=== PATIENT | female | born 1945 | race Caucasian/White ===

== ENCOUNTER 2016-10-16 21:41 | Emergency (ER) | payer MEDICARE, OTHER ==
[2016-10-16 22:19] VITALS: BP 179/76
--- NOTE | 2016-10-16 23:11 | EDM.PDOC ---
[id number] ILLNESS Time Seen by Provider: 10/16/16 22:50 Source of Information: Reports: Patient, Family History Limitations: Reports: No limitations - History of Present Illness INITIAL COMMENTS - FREE TEXT/NARRATIVE: 71-year-old female who over the last 12 hours states she developed a cough and a small amount of nasal congestion, spiked a fever tonight developing rigors at home and became very sweaty and diaphoretic. She felt her pulse in her head so was worried she was having a stroke so came in to be seen. She is perfectly stable. No shortness of breath, no nausea or vomiting. She took Tylenol earlier this evening and some Mucinex. Onset: today Severity: mild Associated Symptoms: Reports: cough, diaphoresis, fever/chills. Denies: nausea/ vomiting, shortness of breath - Related Data Allergies Allergy/AdvReac Type Severity Reaction Status Date / Time erythromycin base AdvReac Nausea Verified 06/01/14 06:49 [Erythromycin Base] Home Meds: Home Meds Rosuvastatin [Crestor] 1 tab PO BEDTIME 06/01/14 [History] Triamterene/Hydrochlorothiazid [Triamterene-HCTZ 37.5-25 MG] 0.5 tab PO DAILY [History] Past Medical History Cardiovascular History: Reports: Hypertension DIRECTOR CAMP History: Reports: Musculoskeletal History: Reports: Fracture - Past Surgical History HEENT Surgical History: Reports: Eye surgery Female Surgical History: Reports: Hysterectomy Social & Family History - Tobacco Use Smoking Status *Q: Never Smoker Second Hand Smoke Exposure: No - Caffeine Use Caffeine Use: Reports: Coffee - Alcohol Use Days Per Week of Alcohol Use: 4 Number of Drinks Per Day: 1 Total Drinks Per Week: 4 - Recreational Drug Use Recreational Drug Use: No ED ROS GENERAL - Review of Systems Review Of Systems: See Below Constitutional: Reports: fever, chills. Denies: malaise HEENT: Reports: Rhinitis Respiratory: Reports: Cough. Denies: Shortness of Breath Cardiovascular: Denies: Chest pain GI/Abdominal: Denies: Abdominal pain : Reports: no symptoms Skin: Reports: no symptoms Psychiatric: Reports: No symptoms ED EXAM, GENERAL - Physical Exam Exam: See Below Exam Limited By: No limitations General Appearance: alert, no apparent distress Eye Exam: bilateral eye: normal inspection Ears: normal TMs Nose: normal inspection Throat/Mouth: Normal inspection Respiratory/Chest: no respiratory distress, lungs clear Cardiovascular: regular rate, rhythm Neurological: alert, oriented Psychiatric: normal affect, normal mood Skin Exam: Warm, Dry Course - Vital Signs Last Recorded V/S: Last Vital Signs Temp 99.1 F 10/16/16 22:34 Pulse 86 10/16/16 22:34 Resp 16 10/16/16 22:34 BP 179/76 H 10/16/16 22:34 Pulse Ox 95 10/16/16 22:34 - Orders/Labs/Meds Orders: Active Orders 24 hr Category Date Time Status CULTURE STREP A CONFIRMATION [RM] Routine Lab 10/16/16 23:08 Results STREP SCRN A RAPID W CULT CONF [RM] Routine Lab 10/16/16 23:08 Results - Re-Assessments/Exams Free Text/Narrative Re-Assessment/Exam: 10/16/16 23:11 Influenza antigens and a rapid strep were obtained. 10/17/16 00:24 Patient was positive for influenza B. She'll be placed on Tamiflu 75 mg twice daily for 5 days. She can return anytime if worsening or concerns. Departure - Departure Time of Disposition: 00:31 Disposition: Home, Self-Care 01 Condition: good Clinical Impression: Influenza B Instructions: Influenza, Adult, [id number] Referrals: Kaleigh Infante PA [Primary Care Provider] - Forms: ED Department Discharge Care Plan Goals: Take Tamiflu as prescribed, ibuprofen or Tylenol for fever or pain and return for recheck if worsening such as difficulty breathing. Get rest and fluids. - My Orders Last 24 Hours: My Active Orders 10/16/16 23:08 CULTURE STREP A CONFIRMATION [RM] Routine STREP SCRN A RAPID W CULT CONF [RM] Routine - Assessment/Plan Last 24 Hours: My Active Orders 10/16/16 23:08 CULTURE STREP A CONFIRMATION [RM] Routine STREP SCRN A RAPID W CULT CONF [RM] Routine
== END 2016-10-17 00:37 | disposition home or self-care (01) ==
LOC: JP.ED 21:41
DX: J10.1 Influenza due to other identified influenza virus with other respiratory manifestations (principal); Z88.1 Allergy status to other antibiotic agents; Z79.899 Other long term (current) drug therapy; Z90.710 Acquired absence of both cervix and uterus
CPT/HCPCS: 87081; 87430; 87804; 99283; 99284

== ENCOUNTER 2017-06-24 07:48 | Day surgery (SDC) | payer MEDICARE, OTHER ==
[2017-06-24] MEDS ORDERED: Sodium Chloride 0.9% 1,000 ML IV SCH (08:30)
[2017-06-24] MEDS ORDERED: Propofol 200 MG/20 ML SDV ONE (08:34)
[2017-06-24] MEDS ORDERED: fentaNYL 100 MCG/2 ML SDV ONE (08:34)
[2017-06-24 10:44] VITALS: BP 173/79
--- NOTE | 2017-06-25 09:44 | OR ---
DATE OF PROCEDURE: 06/24/2017 PROCEDURE: Colonoscopy. FINDINGS: Sigmoid colon polyp, approximately 5 mm, completely removed using cold biopsy forceps. COMPLICATIONS: None. 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 PREOPERATIVE DIAGNOSIS: Screening colonoscopy. POSTOPERATIVE DIAGNOSIS: Screening colonoscopy. RISKS: Risks, benefits, alternatives, and limitations, including but not limited to bleeding and infection, were explained to the patient, who wished to proceed. PROCEDURE IN DETAIL: The patient was placed in left lateral decubitus position. Digital rectal exam was performed without abnormality. Scope was introduced and advanced atraumatically to the ileocecal valve. The scope was brought back through the ascending, transverse, descending colon, and retroflexed. There was no evidence of old or new blood. No diverticulosis. No other abnormalities. The patient tolerated the procedure well. Flakito Barcenas MD /[id number]
== END 2017-06-24 11:22 | disposition home or self-care (01) ==
LOC: JP.SDS 07:48
PROVIDERS: ATTEND Surgery
DX: Z12.11 Encounter for screening for malignant neoplasm of colon (principal); D12.5 Benign neoplasm of sigmoid colon; I10 Essential (primary) hypertension; Z88.1 Allergy status to other antibiotic agents
CPT/HCPCS: 45380; 88305; J2704; J3010; J7040

== ENCOUNTER 2020-09-12 06:19 | Day surgery (SDC) | payer MEDICARE, OTHER ==
[2020-09-12] MEDS ORDERED: Sodium Chloride 0.9% 1,000 ML IV SCH (07:00)
[2020-09-12] MEDS ORDERED: fentaNYL 100 MCG/2 ML SDV ONE (07:20)
[2020-09-12] MEDS ORDERED: Propofol 200 MG/20 ML SDV ONE (07:20)
[2020-09-12] MEDS ORDERED: Midazolam 1 MG/ML 2 ML SDV ONE (07:21)
[2020-09-12 08:57] VITALS: BP 139/53; PULSE 56
--- NOTE | 2020-09-12 11:15 | OR ---
DATE OF PROCEDURE: SURGEON: Flakito Barcenas MD PROCEDURE: Colonoscopy. FINDINGS: 1. Ascending colon polyp, approximately 5 mm, completely removed using cold biopsy forceps. 2. Ascending colon polyp #2, approximately 5 mm, completely removed using cold biopsy forceps. COMPLICATIONS: None. SHAKE TABLE OPERATOR: None. ANESTHESIA: MAC. PREOPERATIVE DIAGNOSIS: History of colorectal polyps. POSTOPERATIVE DIAGNOSIS: History of colorectal polyps. RISKS: Risks, benefits, alternatives, and limitations including, but not limited to infection, bleeding, perforation, false positives, and false negatives were explained to the patient who wished to proceed. PROCEDURE IN DETAIL: The patient was placed in left lateral decubitus position. Digital rectal exam was performed without abnormality. Scope was introduced and advanced atraumatically to the ileocecal valve. A photo was taken of this. Scope was brought back to the ascending, transverse, descending colon, and retroflexed. The aforementioned polyps were both removed using hot snare wire device. No abnormalities were noted after removal. No significant bleeding was noted. No evidence of colitis. No diverticulosis. No abnormalities on retroflexion. The prep was acceptable with approximately 90% of the luminal surface could be seen. Greater than 8 minutes was spent removing the scope. The patient tolerated the procedure well. Flakito Barcenas MD /[id number]
== END 2020-09-12 09:10 | disposition home or self-care (01) ==
LOC: JP.SDS 06:19
PROVIDERS: ATTEND Surgery
DX: Z12.11 Encounter for screening for malignant neoplasm of colon (principal); D12.2 Benign neoplasm of ascending colon; K51.40 Inflammatory polyps of colon without complications; I10 Essential (primary) hypertension; E78.00 Pure hypercholesterolemia, unspecified; Z88.1 Allergy status to other antibiotic agents; Z88.8 Allergy status to other drugs, medicaments and biological substances
CPT/HCPCS: 45380; 88305; J2250; J2704; J3010; J7030